=== PATIENT | female | born 1990 | race Two or more races ===

== ENCOUNTER 2024-01-28 18:08 | Emergency (ER) | payer OTHER ==
[~2024-01-28] VITALS: Ht 160 cm; Wt 77.6 kg
[2024-01-28] MEDS ORDERED: PRENATA CHEWAB1 EACH PO (18:19)
[2024-01-28 19:07] LABS: HEMATOCRIT 40.7 % (36.0-45.00); HEMOGLOBIN 13.9 g/dL (12.0-15.00); MEAN CORPUSCULAR HEMOGLOBIN 30.5 pg (27.00-32.0); MEAN CORPUSCULAR HGB CONC 34.3 g/dl (32.0-36.0); PLATELET COUNT 311 K/uL (150-450); RED BLOOD COUNT 4.57 M/uL (4.00-6.00); RED CELL DISTRIBUTION WIDTH 13.2 % (11.5-14.5)
[2024-01-28 19:14] LABS: PH,URINE 7.5 (5.0-8.0); URINE APPEARANCE Clear; URINE BILIRRUBIN Negative (NEGATIVE); URINE BLOOD Negative; URINE COLOR Yellow; URINE GLUCOSE Negative (NEGATIVE); URINE KETONE Negative (NEGATIVE); URINE LEUKOCYTE Negative; URINE NITRATE Negative; URINE PROTEIN Negative (NEGATIVE); URINE UROBILINOGEN 0.2 E.U./dl
[2024-01-28 19:16] LABS: URINE BACTERIA 171.3 uL (0.0-1933); URINE EPITHELIAL CELLS 6.1 uL (0.0-38.8); URINE RBC 6.2 uL (0.0-20.8); URINE WBC 3.2 uL (0.0-23.2)
== END 2024-01-28 20:34 | disposition home or self-care (01) ==
LOC: ER 18:09
PROVIDERS: General Practice
DX: O20.8 Other hemorrhage in early pregnancy (principal); Z3A.01 Less than 8 weeks gestation of pregnancy; Z88.0 Allergy status to penicillin; Z88.6 Allergy status to analgesic agent

== ENCOUNTER 2024-09-24 14:29 | Emergency (ER) | payer OTHER ==
[~2024-09-24] VITALS: Ht 160 cm; Wt 84.4 kg
[~2024-09-24 14:29] MED LIST: PRENATA CHEWAB1 EACH PO
[2024-09-24 17:44] LABS: URINE APPEARANCE Turbid; URINE BILIRRUBIN Negative (NEGATIVE); URINE BLOOD Negative; URINE COLOR Yellow; URINE GLUCOSE Negative (NEGATIVE); URINE KETONE Negative (NEGATIVE); URINE LEUKOCYTE Small; URINE NITRATE Negative; URINE PROTEIN Negative (NEGATIVE); URINE UROBILINOGEN 0.2 E.U./dl
[2024-09-24 17:48] LABS: URINE BACTERIA 2379.4 uL (0.0-1933); URINE EPITHELIAL CELLS 61.2 uL (0.0-38.8); URINE RBC 5.4 uL (0.0-20.8); URINE WBC 5.8 uL (0.0-23.2)
[2024-09-24 18:01] LABS: URINE CRYSTALS MANY /HPF
[2024-09-24 18:02] LABS: HEMATOCRIT 40.6 % (36.0-45.00); HEMOGLOBIN 13.7 g/dL (12.0-15.00); MEAN CORPUSCULAR HGB CONC 33.8 g/dl (32.0-36.0); PLATELET COUNT 323 K/uL (150-450); RED BLOOD COUNT 4.72 M/uL (4.00-6.00); RED CELL DISTRIBUTION WIDTH 14.4 % (11.5-14.5)
[2024-09-24 18:33] LABS: BILIRUBIN TOTAL 0.21 mg/dL (0.3-1.2); CALCIUM 9.5 mg/dL (8.5-10.1); CREATININE SERUM 0.7 mg/dL (0.55-1.02); GFR 95.79; GLOBULINA 4.2 G/DL (2.4-3.5); POTASSIUM 4.05 mEq/L (3.5-5.1); TOTAL PROTEIN 8.2 gm/dL (6.4-8.2)
[2024-09-24] MEDS ORDERED: MACROBID 100 M100 MG PO (19:59)
== END 2024-09-24 21:32 | disposition home or self-care (01) ==
LOC: ER 14:30
PROVIDERS: Preventive Medicine Public Health & General Preventive Medicine
DX: O23.40 Unspecified infection of urinary tract in pregnancy, unspecified trimester (principal); M54.50 Low back pain, unspecified; R30.0 Dysuria; Z88.0 Allergy status to penicillin; Z88.6 Allergy status to analgesic agent

== ENCOUNTER 2024-09-28 13:18 | Emergency (ER) | payer OTHER ==
[~2024-09-28] VITALS: Ht 160 cm; Wt 84.4 kg
[~2024-09-28 13:18] MED LIST changes: +MACROBID 100 M100 MG PO
[2024-09-28 15:15] LABS: HEMATOCRIT 39.7 % (36.0-45.00); HEMOGLOBIN 13.3 g/dL (12.0-15.00); MEAN CORPUSCULAR HEMOGLOBIN 29.1 pg (27.00-32.0); MEAN CORPUSCULAR HGB CONC 33.4 g/dl (32.0-36.0); PLATELET COUNT 278 K/uL (150-450); RED BLOOD COUNT 4.56 M/uL (4.00-6.00)
[2024-09-28 16:01] LABS: CALCIUM 9.4 mg/dL (8.5-10.1); CREATININE SERUM 0.61 mg/dL (0.55-1.02); GFR 112.27; POTASSIUM 4.25 mEq/L (3.5-5.1)
[2024-09-28 16:01] LABS: PH,URINE 7.5 (5.0-8.0); URINE APPEARANCE Turbid; URINE BILIRRUBIN Negative (NEGATIVE); URINE BLOOD Negative; URINE COLOR Yellow; URINE GLUCOSE Negative (NEGATIVE); URINE KETONE Negative (NEGATIVE); URINE LEUKOCYTE Negative; URINE NITRATE Negative; URINE PROTEIN Negative (NEGATIVE); URINE UROBILINOGEN 0.2 E.U./dl
[2024-09-28 16:06] LABS: URINE BACTERIA 102.7 uL (0.0-1933); URINE EPITHELIAL CELLS 3.9 uL (0.0-38.8)
[2024-09-28 16:10] LABS: URINE RBC 1.7 uL (0.0-20.8); URINE WBC 1.2 uL (0.0-23.2)
== END 2024-09-28 17:57 | disposition home or self-care (01) ==
LOC: ER 13:19
PROVIDERS: General Practice
DX: O20.9 Hemorrhage in early pregnancy, unspecified (principal); Z3A.01 Less than 8 weeks gestation of pregnancy; Z88.6 Allergy status to analgesic agent; Z88.0 Allergy status to penicillin; Z87.09 Personal history of other diseases of the respiratory system

== ENCOUNTER 2024-11-10 11:07 | Emergency (ER) | payer OTHER ==
[~2024-11-10] VITALS: Ht 162.6 cm; Wt 86.2 kg
[2024-11-10] MEDS ORDERED: ENDOMETRIN100 MG PO (11:16)
[2024-11-10 12:00] LABS: BASO % 0.6 % (0.1-1.2); EOS # 0.04 (0.04-0.54); EOS % 0.5 % (0.7-7.0); HEMOGLOBIN 12.2 g/dL (11.2-15.7); LYMPH # 1.59 (1.18-3.74); LYMPH % 19.1 % (19.3-53.1); MEAN CORPUSCULAR HEMOGLOBIN 28.7 pg (25.6-32.2); MONO # 0.97 (0.24-0.82); MONO % 11.6 % (4.7-12.5); NEUT # 5.66 (1.56-6.13); PLATELET COUNT 266 K/uL (163-369); RED BLOOD COUNT 4.25 M/uL (3.93-5.22); RED CELL DISTRIBUTION WIDTH 13.7 % (11.6-14.4)
[2024-11-10 14:04] LABS: CALCIUM 9.2 mg/dL (8.5-10.1); CREATININE SERUM 0.49 mg/dL (0.55-1.02); GFR 144.56; POTASSIUM 4.2 mEq/L (3.5-5.1)
== END 2024-11-10 18:33 | disposition home or self-care (01) ==
LOC: ER 11:07
PROVIDERS: Emergency Medicine
DX: O20.8 Other hemorrhage in early pregnancy (principal); Z3A.12 12 weeks gestation of pregnancy; Z88.0 Allergy status to penicillin; Z88.6 Allergy status to analgesic agent; Z91.040 Latex allergy status

== ENCOUNTER 2024-12-14 20:21 | Emergency (ER) | payer OTHER ==
[~2024-12-14] VITALS: Ht 160 cm; Wt 87.1 kg
[~2024-12-14 20:21] MED LIST changes: +ENDOMETRIN100 MG PO
[2024-12-14 21:42] LABS: BASO % 0.3 % (0.1-1.2); EOS # 0.01 (0.04-0.54); EOS % 0.1 % (0.7-7.0); LYMPH # 2.04 (1.18-3.74); LYMPH % 19.0 % (19.3-53.1); MEAN PLATELET VOLUME 10.70 fl (9.4-12.4); MONO # 0.97 (0.24-0.82); MONO % 9.0 % (4.7-12.5); NEUT # 7.66 (1.56-6.13); NEUT % 71.3 % (34.0-71.1); RED CELL DISTRIBUTION WIDTH 13.8 % (11.6-14.4)
[2024-12-14 23:42] LABS: URINE APPEARANCE Cloudy; URINE BILIRRUBIN Negative (NEGATIVE); URINE BLOOD Negative; URINE COLOR Yellow; URINE GLUCOSE Negative (NEGATIVE); URINE KETONE 15 (NEGATIVE); URINE LEUKOCYTE Moderate; URINE NITRATE Negative; URINE PROTEIN Negative (NEGATIVE); URINE UROBILINOGEN 0.2 E.U./dl
[2024-12-14 23:46] LABS: URINE BACTERIA 459.5 uL (0.0-1933); URINE EPITHELIAL CELLS 12.1 uL (0.0-38.8); URINE WBC 13.6 uL (0.0-23.2)
[2024-12-14 23:47] LABS: URINE CAST 0.14 uL (0.0-1.40); URINE RBC 0.4 uL (0.0-20.8)
== END 2024-12-14 22:51 | disposition home or self-care (01) ==
LOC: ER 20:30
PROVIDERS: General Practice
DX: O26.892 Other specified pregnancy related conditions, second trimester (principal); R10.31 Right lower quadrant pain; Z3A.17 17 weeks gestation of pregnancy; Z88.0 Allergy status to penicillin; Z87.09 Personal history of other diseases of the respiratory system; Z88.6 Allergy status to analgesic agent; Z91.040 Latex allergy status

== ENCOUNTER 2024-12-20 23:28 | Emergency (ER) | payer OTHER ==
[~2024-12-20] VITALS: Ht 160 cm; Wt 87.1 kg
[2024-12-21] MEDS ORDERED: 0.9 % SODIUM CHLORIDE 1,000 ML IV STA (02:07)
[2024-12-21] MEDS ORDERED: MORPHINE SULFATE 4 MG/ML VIAL IV STA (02:08)
[2024-12-21] MEDS ORDERED: HYOSCYAMINE SULFATE 0.125 MG TAB.SUBL SL STA (02:08)
[2024-12-21] MEDS ORDERED: ONDANSETRON HCL 2 MG/ML VIAL IV STA (02:09)
[2024-12-21 03:32] LABS: BASO % 0.4 % (0.1-1.2); EOS # 0.05 (0.04-0.54); EOS % 0.5 % (0.7-7.0); LYMPH # 2.37 (1.18-3.74); LYMPH % 24.1 % (19.3-53.1); MEAN PLATELET VOLUME 10.80 fl (9.4-12.4); MONO # 1.04 (0.24-0.82); MONO % 10.6 % (4.7-12.5); NEUT # 6.32 (1.56-6.13); NEUT % 64.2 % (34.0-71.1); RED CELL DISTRIBUTION WIDTH 13.8 % (11.6-14.4)
[2024-12-21 03:44] LABS: URINE APPEARANCE Clear; URINE BILIRRUBIN Negative (NEGATIVE); URINE BLOOD Negative; URINE COLOR Yellow; URINE GLUCOSE Negative (NEGATIVE); URINE KETONE 15 (NEGATIVE); URINE LEUKOCYTE Negative; URINE NITRATE Negative; URINE PROTEIN Negative (NEGATIVE); URINE UROBILINOGEN 1.0 E.U./dl
[2024-12-21 03:45] LABS: URINE BACTERIA 111.5 uL (0.0-1933); URINE EPITHELIAL CELLS 10.2 uL (0.0-38.8); URINE RBC 5.8 uL (0.0-20.8); URINE WBC 7.9 uL (0.0-23.2)
[2024-12-21 03:54] LABS: TYPE CELLS SQUAMOUS; URINE CAST 0.43 uL (0.0-1.40)
[2024-12-21 04:14] LABS: ALT/SGPT 21.0 U/L (12-78); AST/SGOT 22.0 U/L (15-37); BILIRUBIN TOTAL 0.28 mg/dL (0.3-1.2); BUN CREA RATIO 10.0 (7.0-25.0); CREATININE SERUM 0.58 mg/dL (0.55-1.02); GFR 119.0; GLOBULINA 4.3 G/DL (2.4-3.5); GLUCOSE FASTING 75.0 mg/dL (65-100); OSMOLALITY SERUM 278.0 MOSM/KG (275-295)
[2024-12-21 04:15] LABS: HCG QUANTITATIVE 5999.0 mUI/mL (1-3)
== END 2024-12-21 05:55 | disposition home or self-care (01) ==
LOC: ER 23:28
DX: O26.892 Other specified pregnancy related conditions, second trimester (principal); Z3A.18 18 weeks gestation of pregnancy; R10.31 Right lower quadrant pain; Z88.0 Allergy status to penicillin; Z88.6 Allergy status to analgesic agent; Z91.040 Latex allergy status